=== PATIENT | female | born 1970 | race African-American/Black ===

== ENCOUNTER 2017-01-29 02:07 | Emergency (ER) | payer OTHER ==
[2017-01-29] MEDS ORDERED: Sulfamethox/Trimethoprim DS 800/160* TAB PO ONE (03:13)
[2017-01-29] MEDS ORDERED: predniSONE TAB* 20 MG PO ONE (03:14)
[2017-01-29 03:16] VITALS: BP 122/52
--- NOTE | 2017-01-29 06:03 | ED ---
Cristian Mejias SooYoung, scribed for Bonifacio Cassidy on 01/29/17 at 0319 . Skin Complaint - HPI Summary HPI Summary: A 46 y/o F LUCHO presents to ED with possible allergic reaction to insect bite. Rash appears erythematous and itchy, located on bilat UE, abd, back. Pt is unsure what may have bit her or what she may be allergic to. NKA. - History of Current Complaint Chief Complaint: EDRashSkinAbscess Time Seen by Provider: 01/29/17 03:05 Stated Complaint: ARM SWELLING Hx Obtained From: Patient, EMS Onset/Duration: Still Present Timing: Constant Onset Severity: Mild Current Severity: Mild Pain Intensity: 0 Pain Scale Used: 0-10 Numeric Skin Location: Diffuse Character: Pruritus, Redness Related History: Insect Bite/Sting - Allergy/Home Medications Allergies/Adverse Reactions: Allergies Allergy/AdvReac Type Severity Reaction Status Date / Time No Known Allergies Allergy Verified 03/18/16 09:09 PMH/Surg Hx/FS Hx/Imm Hx Previously Healthy: Yes Respiratory History: Reports: Hx Asthma GI History: Denies: Hx Gastroesophageal Reflux Disease, Hx Ulcer Sensory History: Reports: Hx Contacts or Glasses Opthamlomology History: Reports: Hx Contacts or Glasses Psychiatric History: Reports: Hx Anxiety Denies: Hx of Violent Episodes Against Others - Cancer History Hx Chemotherapy: No Hx Radiation Therapy: No Infectious Disease History: No Infectious Disease History: Denies: Traveled Outside the [place] in Last 30 Days - Family History Known Family History: Positive: Other - colon ca mom - Social History Occupation: Employed Full-time Lives: With Family Alcohol Use: Weekly Hx Substance Use: Yes Substance Use Type: Reports: Marijuana Hx Tobacco Use: Yes Smoking Status (MU): Current Every Day Smoker Review of Systems Negative: Fever Positive: Rash All Other Systems Reviewed And Are Negative: Yes Physical Exam Triage Information Reviewed: Yes Vital Signs On Initial Exam: Initial Vitals Temp Pulse Resp BP Pulse Ox 97 F 67 16 143/70 98 01/29/17 02:20 01/29/17 02:20 01/29/17 02:20 01/29/17 02:20 01/29/17 02:20 Vital Signs Reviewed: Yes Appearance: Positive: Well-Appearing, No Pain Distress Skin: Positive: Warm, Skin Color Reflects Adequate Perfusion, Dry, Other - Rash on R arm, L forearm, R-side of abd; rash is erythematous, swollen, tender Head/Face: Positive: Normal Head/Face Inspection Eyes: Positive: EOMI, TU ENT: Positive: Normal ENT inspection Neck: Positive: Supple, Nontender Respiratory/Lung Sounds: Positive: Clear to Auscultation, Breath Sounds Present Cardiovascular: Positive: RRR, Pulses are Symmetrical in both Upper and Lower Extremities Abdomen Description: Positive: Nontender, Soft Bowel Sounds: Positive: Present Musculoskeletal: Positive: Normal, Strength/ROM Intact Neurological: Positive: Normal, Sensory/Motor Intact, Alert, Oriented to Person Place, Time Diagnostics - Vital Signs Vital Signs Temp Pulse Resp BP Pulse Ox 01/29/17 02:24 97 F 76 16 143/70 98 01/29/17 02:20 97 F 67 16 143/70 98 - Laboratory Lab Statement: Any lab studies that have been ordered have been reviewed, and results considered in the medical decision making process. Course/Dx - Course Course Of Treatment: A 46 y/o F LUCHO presents to ED with possible allergic reaction to insect bite. Rash appears erythematous and itchy, located on bilat UE, abd, back. Pt is unsure what may have bit her or what she may be allergic to. NKA. Pt given Deltasone, Bactrim in ED. Will D/C home with Bactrim, Benadryl, Deltasone, and f/u with PCP. - Diagnoses Provider Diagnoses: Cellulitis, Allergic reaction Discharge - Discharge Plan Condition: Stable Disposition: HOME Prescriptions: Sulfamethox/Trimethoprim DS* [Bactrim DS 800/160 TAB*] 1 tab PO DAILY #20 tab diPHENhydraMINE PO* [Benadryl PO 25 MG TAB*] 25 mg PO TID PRN #15 tab PRN Reason: Itching predniSONE TAB* [Deltasone TAB*] 40 mg PO DAILY #4 tab Patient Education Materials: Cellulitis (ED), Allergies (ED), Sulfamethoxazole/ Trimethoprim (By mouth), Diphenhydramine (By mouth), Prednisone (By mouth) Referrals: Katya Marin MD [Primary Care Provider] - 3 Days Additional Instructions: Follow up with your primary care provider in 3 days. Please return to the ED if you experience new or worsening symptoms. The documentation as recorded by the scribCristian marx SooYoung accurately reflects the service I personally performed and the decisions made by me, Bonifacio Cassidy.
== END 2017-01-29 03:38 | disposition home or self-care (01) ==
LOC: ED 02:07
DX: T78.40XA Allergy, unspecified, initial encounter (principal); R21 Rash and other nonspecific skin eruption; L03.90 Cellulitis, unspecified; W57.XXXA Bitten or stung by nonvenomous insect and other nonvenomous arthropods, initial encounter; F17.210 Nicotine dependence, cigarettes, uncomplicated
CPT/HCPCS: 99282; A9270-GY; J7512

== ENCOUNTER 2018-02-15 17:00 | Emergency (ER) | payer OTHER ==
[2018-02-15] MEDS ORDERED: LORazepam TAB(*) 0.5 MG PO ONE (17:36)
--- NOTE | 2018-02-15 17:39 | ED ---
Psychiatric Complaint - HPI Summary HPI Summary: This pt is a 48 y/o female presenting to [facility] via EMS for an anxiety attack. Pt reports she has hx of anxiety and has had anxiety every other day for some time now. Today she notes she has been having anxiety since 04:00 and was only able to take a nap for 2 hours. She notes she does not take any medications currently as she has ran out of her Ativan and Wellbutrin does not work well for her. Also pt states she has not seen her PCP (Dr. Marin in [place]) in a long time as she only has access to public transportation. Pt denies SI or HI thoughts/plan. - History Of Current Complaint Time Seen by Provider: 02/15/18 17:21 Hx Obtained From: Patient Onset/Duration: Lasting Days, Still Present Timing: Intermittent Episode Lasting - hours Severity Currently: Moderate Character: Anxious Aggravating Factor(s): Medication Non-compliance Alleviating Factor(s): Nothing Associated Signs And Symptoms: Positive: Sleep Disturbance Has Suicidal: Denies: Thoughts, With A Plan Has Homicidal: Denies: Thoughts, With A Plan - Allergies/Home Medications Allergies/Adverse Reactions: Allergies Allergy/AdvReac Type Severity Reaction Status Date / Time budesonide [From Symbicort] Allergy Unknown Verified 02/15/18 17:29 Reaction Details formoterol [From Symbicort] Allergy Unknown Verified 02/15/18 17:29 Reaction Details shellfish derived Allergy Nausea And Verified 02/15/18 17:29 Vomiting PMH/Surg Hx/FS Hx/Imm Hx Respiratory History: Reports: Hx Asthma GI History: Denies: Hx Gastroesophageal Reflux Disease, Hx Ulcer Sensory History: Reports: Hx Contacts or Glasses Opthamlomology History: Reports: Hx Contacts or Glasses Psychiatric History: Reports: Hx Anxiety Denies: Hx of Violent Episodes Against Others - Cancer History Hx Chemotherapy: No Hx Radiation Therapy: No - Family History Known Family History: Positive: Other - colon ca mom - Social History Alcohol Use: Weekly Hx Substance Use: Yes Substance Use Type: Reports: Marijuana Hx Tobacco Use: Yes Smoking Status (MU): Current Every Day Smoker Review of Systems Negative: Fever, Chills Negative: Chest Pain Negative: Shortness Of Breath Positive: Anxious. Negative: Depressed, Other - SI or HI thoughts/plan All Other Systems Reviewed And Are Negative: Yes Physical Exam - Summary Physical Exam Summary: VITAL SIGNS: Reviewed. GENERAL: Patient is a well-developed and nourished female. Patient is not in any acute respiratory distress. HEAD AND FACE: No signs of trauma. No ecchymosis, hematomas or skull depressions. No sinus tenderness. EYES: PERRLA, EOMI x 2, No injected conjunctiva, no nystagmus. EARS: Hearing grossly intact. Ear canals and tympanic membranes are within normal limits. MOUTH: Oropharynx within normal limits. NECK: Supple, trachea is midline, no adenopathy, no JVD, no carotid bruit, no c- spine tenderness, neck with full ROM. CHEST: Symmetric, no tenderness at palpation LUNGS: Clear to auscultation bilaterally. No wheezing or crackles. CVS: Regular rate and rhythm, S1 and S2 present, no murmurs or gallops appreciated. ABDOMEN: Soft, non-tender. No signs of distention. No rebound no guarding, and no masses palpated. Bowel sounds are normal. EXTREMITIES: FROM in all major joints, no edema, no cyanosis or clubbing. NEURO: Alert and oriented x 3. No acute neurological deficits. Speech is normal and follows commands. SKIN: Dry and warm Psych: pt is anxious Triage Information Reviewed: Yes Vital Signs Reviewed: Yes Diagnostics - Laboratory Result Diagrams: 02/15/18 18:03 02/15/18 18:03 Lab Statement: Any lab studies that have been ordered have been reviewed, and results considered in the medical decision making process. Course/Dx - Course Assessment/Plan: This patient is a 48-year-old female with past medical history of anxiety presents to the emergency department via ambulance with chief complaint of anxiety episode. The patient reports that she is very anxious and she is unable to sleep. Patient reports that she has not taken her Wellbutrin or her Ativan since she ran out of the medication. Test results without any significant abnormality. In the ED course the patient was given Ativan and her symptoms have improved. The patient will be discharged home with follow-up with PCP and she will be given a prescription for Atarax. I discussed all the findings and test results with the patient. Patient was instructed to return to the emergency room immediately if any of the symptoms return or worsens. Plan of care was discussed with the patient and understands and agrees. All questions were answered at patient satisfaction. There were no further complaints or concerns. Lung exam before discharge: CTA B/L. Good air exchange. No wheezing or crackles heard. CVS: S1 and S2 present. No murmurs appreciated. Patient is alert and oriented x 3. Patient is hemodynamically stable. Patient will be discharged home with follow up PCP in the next 2-3 days - Differential Dx/Clinical Impression Differential Diagnosis/HQI/PQRI: Positive: Anxiety Provider Diagnosis: Anxiety Discharge - Sign-Out/Discharge Documenting (check all that apply): Patient Departure - Discharge - Discharge Plan Condition: Stable Disposition: HOME Prescriptions: hydrOXYzine HCL TAB* [Atarax 25 MG TAB*] 25 mg PO TID PRN #30 tab PRN Reason: Anxiety Patient Education Materials: Anxiety (ED) Referrals: Katya Marin MD [Primary Care Provider] - Additional Instructions: FOLLOW UP WITH YOUR PRIMARY CARE PROVIDER WITHIN ONE WEEK FOR HIGH BLOOD PRESSURE NOTED TODAY. RETURN TO THE ED FOR ANY NEW OR WORSENING SYMPTOMS. - Billing Disposition and Condition Condition: STABLE Disposition: Home - Attestation Statements Document Initiated by Scribe: Yes Documenting Scribe: Constance Browne Provider For Whom Crystale is Documenting (Include Credential): Nico Grover MD Scribe Attestation: Constance Mejias, scribed for Nico Grover MD on 02/16/18 at 0815. Scribe Documentation Reviewed: Yes Provider Attestation: The documentation as recorded by the Constance nunez accurately reflects the service I personally performed and the decisions made by me, Nico Grover MD
[2018-02-15 18:19] LABS: ABS Basophils 0 10^3/ul (0-0.2); ABS Eosinophils 0.2 10^3/ul (0-0.6); ABS Lymphocytes 2.8 10^3/ul (1.0-4.8); ABS Monocytes 0.4 10^3/ul (0-0.8); ABS Neutrophils 1.1 10^3/ul (1.5-7.7); ABS Nucleated RBC 0 10^3/ul; Eosinophil % 3.5 % (0-6); Hematocrit 40 % (35-47); Hemoglobin 13.3 g/dl (12.0-16.0); Lymphocyte % 62.5 % (25-47); Mean Corpuscular HGB Conc 34 g/dl (31-36); Mean Corpuscular Hemoglobin 33 pg (27-31); Mean Corpuscular Volume 98 fL (80-97); Nucleated Red Blood Cells % 0.1; Platelet Count 223 10^3/ul (150-450); Red Blood Count 4.02 10^6/ul (4.00-5.40); Red Cell Distribution Width 14 % (10.5-15); White Blood Count 4.4 10^3/ul (3.5-10.8)
[2018-02-15 18:32] LABS: EGFR Non-African American 80.7 (>60)
[2018-02-15 18:58] LABS: Urine Appearance Clear; Urine Blood 1+ (Negative); Urine Color Straw; Urine Ketones Negative (Negative); Urine Protein Negative (Negative); Urine Red Blood Cell Absent (Absent); Urine Specific Gravity 1.005 (1.010-1.030); Urine Urobilinogen Negative (Negative); Urine White Blood Cell Trace(0-5/hpf) (Absent)
[2018-02-15 19:27] VITALS: BP 140/86
== END 2018-02-15 19:26 | disposition home or self-care (01) ==
LOC: ED 17:00
DX: F41.9 Anxiety disorder, unspecified (principal); G47.9 Sleep disorder, unspecified; F17.210 Nicotine dependence, cigarettes, uncomplicated
CPT/HCPCS: 36415; 80053; 80307; 80320; 80329; 81003; 81015; 84443; 85025; 87086; 99282; A9270-GY; G0480

== ENCOUNTER 2019-04-05 21:37 | Emergency (ER) | payer OTHER ==
[2019-04-05] MEDS ORDERED: LORazepam TAB(*) 1 MG PO ONE (21:50)
--- NOTE | 2019-04-05 21:56 | ED ---
Psychiatric Complaint - HPI Summary HPI Summary: This pt is a 49 Y/O F presenting to [facility] with a CC of an anxiety attack that started at 2100 tonight. She states that she was first diagnosed in 2008 and 2009 and has a Hx of prior medications. She states that shes having hyperventilation due to her increased anxiety. She states that she is currently experiencing shakes and shivers. Pt states that she doesnt want to cramp up like she usually She states that she is a patient at [facility]. She denies any SOB, CP, N/V, abdominal pains, fevers, SI/HI, and headaches. She states no aggravating or alleviating factors at this time. She states that she has a PMHx of anxiety and asthma. - History Of Current Complaint Chief Complaint: EDPsychosocial Time Seen by Provider: 04/05/19 21:43 Hx Obtained From: Patient Onset/Duration: Sudden Onset Timing: Constant Severity Initially: Moderate Severity Currently: Moderate Character: Anxious Aggravating Factor(s): Nothing Alleviating Factor(s): Nothing Associated Signs And Symptoms: Positive: Negative - SOB, CP, N/V, abdominal pains, fevers, and headaches. Related History: Positive For: Prior Psychiatric Issues Has Suicidal: Denies: Thoughts, With A Plan Has Homicidal: Denies: Thoughts, With A Plan - Allergies/Home Medications Allergies/Adverse Reactions: Allergies Allergy/AdvReac Type Severity Reaction Status Date / Time budesonide [From Symbicort] Allergy Unknown Verified 04/05/19 22:06 Reaction Details formoterol [From Symbicort] Allergy Unknown Verified 04/05/19 22:06 Reaction Details shellfish derived Allergy Nausea And Verified 04/05/19 22:06 Vomiting PMH/Surg Hx/FS Hx/Imm Hx Previously Healthy: Yes Respiratory History: Reports: Hx Asthma GI History: Denies: Hx Gastroesophageal Reflux Disease, Hx Ulcer Sensory History: Reports: Hx Contacts or Glasses Opthamlomology History: Reports: Hx Contacts or Glasses Psychiatric History: Reports: Hx Anxiety Denies: Hx of Violent Episodes Against Others - Cancer History Hx Chemotherapy: No Hx Radiation Therapy: No - Immunization History Immunizations Up to Date: Yes Infectious Disease History: No Infectious Disease History: Denies: Traveled Outside the [place] in Last 30 Days - Family History Known Family History: Positive: Other - colon ca mom - Social History Lives: With Family Alcohol Use: Weekly Hx Substance Use: Yes Substance Use Type: Reports: Marijuana Hx Tobacco Use: Yes Smoking Status (MU): Current Every Day Smoker Review of Systems Positive: Chills, Other. Negative: Fever Negative: Chest Pain Negative: Shortness Of Breath Negative: Abdominal Pain, Vomiting, Nausea Negative: Headache Psychological: Other - Denies: SI and HI Positive: Anxious All Other Systems Reviewed And Are Negative: Yes Physical Exam - Summary Physical Exam Summary: Constitutional: Well-developed, Well-nourished, Alert, mildly distressed secondary to anxiety Skin: Warm, Dry HENT: Normocephalic; Atraumatic Eyes: Conjunctiva normal Neck: Musculoskeletal ROM normal neck. (-) JVD, (-) Stridor, (-) Nuchal rigidity Cardio: Rhythm regular, rate normal, Heart sounds normal; Intact distal pulses; Radial pulses are 2+ and symmetric. (-) Murmur Pulmonary/Chest wall: Effort normal. (-) Respiratory distress, (-) Wheezes, (-) Rales Abd: Soft, (-) tenderness, (-) Distension, (-) Guarding, (-) Rebound Musculoskeletal: (-) Edema Lymph: (-) Cervical adenopathy Neuro: Alert, Oriented x3 Psych: anxious, fidgeting, restless Triage Information Reviewed: Yes Vital Signs On Initial Exam: Initial Vitals Temp Pulse Resp BP Pulse Ox 97.8 F 82 20 0/0 100 04/05/19 21:37 04/05/19 21:37 04/05/19 21:37 04/05/19 21:37 04/05/19 21:37 Vital Signs Reviewed: Yes Procedures - Sedation Patient Received Moderate/Deep Sedation with Procedure: No Diagnostics - Vital Signs Vital Signs Temp Pulse Resp BP Pulse Ox 04/05/19 21:37 97.8 F 82 20 0/0 100 - Laboratory Lab Statement: Any lab studies that have been ordered have been reviewed, and results considered in the medical decision making process. - EKG 2226 Cardiac Rate: NL - 68 BPM EKG Rhythm: Sinus Rhythm ST Segment: Normal Ectopy: None Summary of EKG Findings: An EKG at 2226 reveals normal sinus rhythm (68 BPM), nml axis, prolonged CA interval No STEMI. No acute changes. Interpreted by Dr. Griffiths at 223204/05/19. Re-Evaluation - Re-Evaluation First Eval Re-Evaluation Time: 22:27 Change: Improved Comment: Pt reports feeling much better after taking ativan. Would like to eat. EKG unremarkable. Course/Dx - Course Course Of Treatment: 49 y/o F w hx anxiety p/w anxiety. - anxious on arrival given 1 ativan. Most recent presentation was last year got ativan x1. Does not chronically take medications. Has mental health f/u. No SI or HI. Also requesting nicotine patch. Son at bedside. Patient denies triggers for anxiety. Will check EKG and obs. - Differential Dx/Clinical Impression Provider Diagnosis: Anxiety Discharge ED - Sign-Out/Discharge Documenting (check all that apply): Patient Departure - discharge - Discharge Plan Condition: Stable Disposition: HOME Patient Education Materials: Anxiety (ED) Referrals: Katya Marin MD [Primary Care Provider] - 2 Days Additional Instructions: You were seen in the emergency department for anxiety. Please follow up with your mental health provider. If any studies were not completed at the time of discharge you will be called with the relevant results. Please follow up with your primary care doctor in next 2-3 days and return to emergency department for worsening anxiety, thoughts of wanting to hurt yourself or others, chest pain, or concerning symptoms. It was a pleasure taking care of you today. - Billing Disposition and Condition Condition: STABLE Disposition: Home - Attestation Statements Document Initiated by Mitzy: Yes Documenting Scribe: Harsh Valles Provider For Whom Mitzy is Documenting (Include Credential): Mary Ellen Griffiths MD Scribe Attestation: I, Harsh Valles, scribed for Mary Ellen Griffiths MD on 04/05/19 at 2238. Scribe Documentation Reviewed: Yes Provider Attestation: The documentation as recorded by the Harsh nunez accurately reflects the service I personally performed and the decisions made by me, Mary Ellen Griffiths MD Status of Scribe Document: Viewed
[2019-04-05] MEDS ORDERED: Nicotine PATCH 14 MG/24 HR* PATCH TRANSDERM ONE (22:23)
[2019-04-05 22:56] VITALS: BP 150/90
== END 2019-04-05 22:37 | disposition home or self-care (01) ==
LOC: ED 21:37
DX: F41.9 Anxiety disorder, unspecified (principal); F17.210 Nicotine dependence, cigarettes, uncomplicated; J45.909 Unspecified asthma, uncomplicated
CPT/HCPCS: 93005; 99282; A9270-GY

== ENCOUNTER 2019-04-21 01:07 | Emergency (ER) | payer OTHER ==
[2019-04-21 01:13] VITALS: BP 164/99
== END 2019-04-21 01:45 | disposition left against medical advice (07) ==
LOC: ED 01:07
DX: Z53.21 Procedure and treatment not carried out due to patient leaving prior to being seen by health care provider (principal); F41.9 Anxiety disorder, unspecified
CPT/HCPCS: 99281